=== PATIENT | female | born 1975 | race Caucasian/White ===

== ENCOUNTER 2018-11-29 15:09 | Emergency (ER) | payer OTHER ==
--- NOTE | 2018-11-29 15:35 | UC ---
Abdominal Pain Female HPI - HPI Summary HPI Summary: 43 yo female presents with RLQ pain. She tells me that yesterday she developed RLQ pain that is worse with touching the area and movement. No pain at rest. Pain feels sharp. She is eating and drinking well. Denies fever, chills, SOB, chest pain, n/v/d/c, dysuria, vaginal bleeding or discharge. No flank pain. No hx of any surgeries. - History of Current Complaint Chief Complaint: UCAbdominalPain Stated Complaint: ABD PAIN Time Seen by Provider: 11/29/18 15:34 Hx Obtained From: Patient Hx Last Menstrual Period: 1 WEEK AGO Onset/Duration: Sudden Onset Severity Initially: Moderate Severity Currently: Moderate Pain Intensity: 5 Pain Scale Used: 0-10 Numeric Location: Discrete At: RLQ Allergies/Adverse Reactions: Allergies Allergy/AdvReac Type Severity Reaction Status Date / Time No Known Allergies Allergy Verified 11/29/18 15:27 Home Medications: Home Medications Venlafaxine CAP (NF) [Effexor CAP (NF)] 75 mg PO DAILY 11/29/18 [History Confirmed 11/29/18] PMH/Surg Hx/FS Hx/Imm Hx Psychological History: Anxiety - Surgical History Surgical History: None - Family History Known Family History: Positive: None - Social History Occupation: Employed Full-time Lives: With Family Alcohol Use: Weekly Substance Use Type: None Smoking Status (MU): Never Smoked Tobacco Review of Systems All Other Systems Reviewed And Are Negative: Yes Constitutional: Positive: Negative Skin: Positive: Negative Respiratory: Positive: Negative Cardiovascular: Positive: Negative Gastrointestinal: Positive: Abdominal Pain Genitourinary: Positive: Negative Neurovascular: Positive: Negative Neurological: Positive: Negative Psychological: Positive: Negative Physical Exam - Summary Physical Exam Summary: GENERAL: NAD. WDWN. No pain distress. SKIN: No rashes, sores, lesions, or open wounds. NECK: Supple. Nontender. No lymphadenopathy. CHEST: CTAB. No r/r/w. No accessory muscle use. Breathing comfortably and in no distress. CV: RRR. Without m/r/g. Pulses intact. Cap refill <2seconds ABDOMEN: Mild RLQ pain at mcburnery's point. Positive psoas and obturator sign. Soft. No distention or guarding. No CVA tenderness. Bowel sounds present NEURO: Alert. PSYCH: Age appropriate behavior. Triage Information Reviewed: Yes Vital Signs: Initial Vital Signs Temp 98.0 F 11/29/18 15:27 Pulse 82 11/29/18 15:27 Resp 18 11/29/18 15:27 BP 111/64 11/29/18 15:27 Pulse Ox 99 11/29/18 15:27 Laboratory Tests 11/29/18 15:41 POC Urine Color Yellow POC Urine Clarity Clear POC Urine pH 7.5 POC Ur Specif [place] House 1.015 POC Urine Protein Negative POC Ur Glucose (UA) Negative POC Urine Ketones Negative POC Urine Blood Trace-intact A POC Urine Nitrite Negative POC Urine Bilirubin Negative POC Urine Urobilinogen 0.2 POC U Leukocyte Esteras Negative Vital Signs Reviewed: Yes Abd Pain Female Course/Dx - Course Course Of Treatment: Initially, her exam was most consistent with appendicitis and, thus, CT was ordered: CT: IMPRESSION: No obstructive uropathy. Normal appendix is visualized. No hernias are identified. Follicles are noted in both ovaries. Discussed CT results with pt. No change in symptoms. Discussed possible ovarian etiology and obtaining an ultrasound today. Pt was agreeable to this. US: IMPRESSION: #. Uterine fibroids without significant resulting impression on the endometrium. #. 1.7 cm partially decompressed follicular cyst of the RIGHT ovary. #. 1.2 cm hemorrhagic cyst of the LEFT ovary. #. Normal vascular flow demonstrated at both ovaries. Discussed results with pt. Given the RIGHT ovarian findings, this could be the cause of her pain. There is a possibility that this cyst is rupturing or has ruptured causing her discomfort. At this time my suspicion for any infectious or emergent condition is low as pt is afebrile, appears well, and is eating and drinking without difficulty. Strongly advised to monitor symptoms and if they worsen or if she develops new symptoms to go to the ED for further evaluation. Pt voiced understanding and is in agreement with the plan. - Differential Dx/Diagnosis Provider Diagnosis: RLQ abdominal pain, Ovarian cyst Discharge - Sign-Out/Discharge Documenting (check all that apply): Patient Departure All imaging exams completed and their final reports reviewed: No Studies - Discharge Plan Condition: Stable Disposition: HOME Patient Education Materials: Ovarian Cyst (ED) Referrals: Ernestina Aviles MD [Primary Care Provider] - Additional Instructions: If you develop a fever, shortness of breath, chest pain, new or worsening symptoms - please call your PCP or go to the ED. - Billing Disposition and Condition Condition: STABLE Disposition: Home
[2018-11-29 17:51] VITALS: BP 123/78
== END 2018-11-29 18:10 | disposition home or self-care (01) ==
LOC: UCEAST 15:09
DX: R10.31 Right lower quadrant pain (principal); D25.9 Leiomyoma of uterus, unspecified; N83.01 Follicular cyst of right ovary; N83.202 Unspecified ovarian cyst, left side; F41.9 Anxiety disorder, unspecified
CPT/HCPCS: 74176; 76830; 81003; 99201; G0463

== ENCOUNTER 2019-03-19 13:49 | Emergency (ER) | payer OTHER ==
[2019-03-19 13:57] VITALS: BP 109/67
--- NOTE | 2019-03-19 14:22 | UC ---
Skin Complaint HPI - HPI Summary HPI Summary: 44 yo female with the onset of painful rash below right breast x 1-2 days removed an engorged tick from that area about two weeks ago no fever no chills - History of Current Complaint Chief Complaint: UCRash Time Seen by Provider: 03/19/19 14:12 Stated Complaint: RASH Hx Obtained From: Patient Hx Last Menstrual Period: 03/16/19 Onset/Duration: Gradual Onset, Lasting Days Timing: Constant Onset Severity: Mild Current Severity: Mild Pain Intensity: 4 Pain Scale Used: 0-10 Numeric Character: Swelling, Painful Aggravating Factor(s): Nothing Alleviating Factor(s): Nothing Associated Signs & Symptoms: Positive: Rash Related History: Insect Bite/Sting - Allergy/Home Medications Allergies/Adverse Reactions: Allergies Allergy/AdvReac Type Severity Reaction Status Date / Time No Known Allergies Allergy Verified 03/19/19 13:57 PMH/Surg Hx/FS Hx/Imm Hx Previously Healthy: Yes - Surgical History Surgical History: None - Family History Known Family History: Positive: None - Social History Alcohol Use: Weekly Substance Use Type: None Smoking Status (MU): Never Smoked Tobacco Review of Systems All Other Systems Reviewed And Are Negative: Yes Constitutional: Positive: Negative Skin: Positive: Rash Eyes: Positive: Negative ENT: Positive: Negative Respiratory: Positive: Negative Cardiovascular: Positive: Negative Gastrointestinal: Positive: Negative Genitourinary: Positive: Negative Motor: Positive: Negative Neurovascular: Positive: Negative Musculoskeletal: Positive: Negative Neurological: Positive: Negative Psychological: Positive: Negative Physical Exam Triage Information Reviewed: Yes Appearance: Well-Appearing, No Pain Distress, Well-Nourished Vital Signs: Initial Vital Signs Temp 97.8 F 03/19/19 13:55 Pulse 83 03/19/19 13:55 Resp 16 03/19/19 13:55 BP 109/67 03/19/19 13:55 Pulse Ox 100 03/19/19 13:55 Vital Signs Reviewed: Yes Eyes: Positive: Conjunctiva Clear ENT: Positive: Hearing grossly normal. Negative: Nasal congestion, Nasal drainage, Tonsillar swelling, Tonsillar exudate, Uvula midline Neck: Positive: Supple, Nontender, No Lymphadenopathy Respiratory: Positive: Lungs clear, Normal breath sounds, No respiratory distress, No accessory muscle use Cardiovascular: Positive: RRR Bowel Sounds: Positive: Present Musculoskeletal: Positive: ROM Intact, No Edema Neurological: Positive: Alert Psychological Exam: Normal Skin Exam: Other Images Front/Back of Body, Lg (Emmet): 1 - vesicular rash with surrounding pale erythema Course/Dx - Course Course Of Treatment: I voiced my concern re shingles as well as lyme disease will rx for both - Diagnoses Provider Diagnosis: Shingles Discharge - Sign-Out/Discharge Documenting (check all that apply): Patient Departure All imaging exams completed and their final reports reviewed: No Studies - Discharge Plan Condition: Stable Disposition: HOME Prescriptions: Amoxicillin PO (*) [Amoxicillin 500 MG CAP*] 500 mg PO TID #42 cap Famciclovir(NF) [Famvir(NF)] 500 mg PO TID #21 tab Patient Education Materials: Shingles (ED) Referrals: Danielle Gray MD [Primary Care Provider] - 2 Weeks Additional Instructions: this rash looks like shingles to me because it is in the area that you removed a tick from weeks ago we will treat for possible Lyme disease - Billing Disposition and Condition Condition: STABLE Disposition: Home
--- OUTSIDE RECORDS SUMMARY | 2019-03-19 16:47 | XMS REPORT | Continuity of Care Document ---
:1975 External Reference #:[id number] Author Name Christel Rose Care Team Providers Name Role Phone Ernestina Aviles MD Primary Care Physician Unavailable Payers Date Identification Numbers Payment Provider Subscriber Policy Number: [id number] [employer] Insurance Karyn Vargas PayID: [id number] [address] [place] [address] Family History Date Family Member(s) Observation Comments General Rheumatoid Arthritis Father Lung Cancer Mother Ovarian Cancer Social History Type Date Description Comments Sex Unknown Marital Status Significant Other Lives With Female Partner Occupation Currently Working [employer] Tobacco Use Start: Unknown Never Smoked Cigarettes Smoking Status Reviewed: 02/27/19 Never Smoked Cigarettes ETOH Use Occasionally consumes alcohol Tobacco Use Start: Unknown Patient has never smoked Recreational Drug Use Never Used Drugs Exercise Type/Frequency Exercises regularly Allergies, Adverse Reactions, Alerts Description No Known Drug Allergies Medications Active Medications SIG Qnty Indications Ordering Provider Date Venlafaxine HCL once a day, as 30tabs F33.0 Dnaielle Gray MD 02/27/2019 37.5mg directed Tablets Hydroxyzine HCL 1-2 tabs by mouth 60tabs F41.1 Danielle Gray MD 02/27/2019 25mg at bedtime as Tablets needed insomnia Tizanidine HCL Take One Tablet 30tabs Fox Kauffman, 12/12/2018 2mg By Mouth AT M.D. Tablets Bedtime as Needed For Spasms Venlafaxine HCL ER Ernestina Aviles 75mg MD Junaid Caps ER 24HR History Medications CBD [place] Apply every 12 5units Fox Kauffman, 12/12/2018 - 4-3-9-1.2% hours to painful M.D. 02/26/2019 Patches regions as needed for pain Vitamin D Take 1 Capsule By Unknown - (Ergocalciferol) Mouth Once Weekly 02/26/2019 For 12 Weeks [id number] Capsules Vital Signs Date Vital Result Comment 02/27/2019 1:05pm Height 60 inches 5'0" Heart Rate 68 /min BP Systolic 116 mmHg BP Diastolic 70 mmHg Body Temperature 98.4 F O2 % BldC Oximetry 96 % 12/12/2018 11:14am Height 60 inches 5'0" Weight 147.38 lb Heart Rate 61 /min BP Systolic Sitting 110 mmHg BP Diastolic Sitting 76 mmHg Pain Level 3 O2 % BldC Oximetry 98 % BMI (Body Mass Index) 28.8 kg/m2 02/15/2018 12:53pm Height 60 inches 5'0" Weight 134.50 lb Heart Rate 81 /min BP Systolic Sitting 108 mmHg BP Diastolic Sitting 68 mmHg Pain Level 3 O2 % BldC Oximetry 97 % BMI (Body Mass Index) 26.3 kg/m2 Results Test Date Facility Test Result H/L Range Note Laboratory test 12/26/2018 [facility] Ferritin 35.9 ng/mL N 11 -307 [address] [place] [address] [phone] Iron & Iron Binding 12/26/2018 [facility] Iron 58 g/dL N 50- [address] [place] [address] [phone] Unsaturated Iron Binding < 245 g/dL Total Iron Binding Capacity 260 g/dL N 250-450 Transferrin 186 mg/dL Low 203-362 % Iron Saturation 22 % N 15-55 Hla B27 12/26/2018 [facility] Hla B27 Negative [address] [place] [address] [phone] Hla B27 Interp See Comment 3 1 Please check labs and xrays today 2 REFERENCE VALUE Not Applicable 3 RESULT: HLA-B27 antigen was not detected. ADDITIONAL INFORMATION Method: Flow Cytometry Performing Laboratory CLIA# [id number] Test Performed by: [address] [address] Encounters Type Date Location Provider Dx Diagnosis Office Visit 12/12/2018 [facility] Fox Kauffman M54.2 Cervicalgia 11:00a Of Faculty Physician M.D. 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 Disorder Not Elsewhere Spec Office Visit 06/03/2009 1:30p DO Not Use [facility]ios Varn, 461.9 Sinusitis Acute [facility] N.P. Unspec 386.11 Vertigo Benign Paroxysmal Position 311 Depressive Disorder Not Elsewhere Spec Office Visit 02/11/2009 DO Not Use Remedios Varn, 709.9 Skin & 1:30p [facility] N.P. 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 Examination 780.79 Malaise And Fatigue Other Office Visit 09/26/2007 DO Not Use Radayla, 465.9 URI Upper 2:15p Eliseo Lujan M.D. Respiratory Infections Acute Unspec Sites Office Visit 08/03/2006 DO Not Use Caterina 723.1 Cervicalgia 1:45p Eliseo Lujan M.D. 724.1 Pain Thoracic Spine Office Visit 06/30/2006 DO Not Use Caterina, 780.52 Insomnia 11:15a Eliseo Lujan M.D. Unspecified 311 Depressive Disorder Not Elsewhere Spec Office Visit 04/22/2006 11:45a DO Not Use [facility] Maribell Benitez M.D., [facility] Plan of Treatment Future Appointment(s):04/28/2019 4:20 pm - [facility] 9:40 am - Fox Kauffman M.D. at [facility]02/27/2019 - Danielle Gray MDF33.0 Major depressive disorder, recurrent, mildNew Medication:Venlafaxine HCL 37.5 mg - once a day, as directedComments:Start tapering off of the venlafaxine by taking a 75+ of 37.5 mg tablets in the morning for 2 weeks,then go down 75 for 2 weeks, then go down to 37.5 for 2 weeks. You can prolong this if you having adverse effectsFollow up:8 wksF41.1 Generalized anxiety disorderNew Medication:Hydroxyzine HCL 25 mg - 1-2 tabs by mouth at bedtime as needed eczjoiffR00.2 CervicalgiaNew Therapy: Physical Therapy
== END 2019-03-19 14:40 | disposition home or self-care (01) ==
LOC: UCEAST 13:49
DX: B02.9 Zoster without complications (principal)
CPT/HCPCS: 99212; G0463